=== PATIENT | male | born 1955 | race Hispanic/Latino ===

== ENCOUNTER → 2018-09-03 | Outpatient (CLI) | payer BC ==
[~2018-09-03] MED LIST: ACTOS; AMLODIPINE BESYL5 MG PO; AMLODOPINE; ASPIR 8181 MG PO; ATORVASTATIN CA20 MG PO; AZITHROMYCIN250 MG PO; CHERATUSSIN AC118 ML; GABAPENTIN100 MG PO; GLUCOSAMINE1000 MG PO; IBUPROFEN200 MG PO; LEVEMIR100 UNIT/1 SQ; LISINOPRIL; LISINOPRIL10 MG PO; METFORMIN; METFORMIN HCL500 MG PO; MULTIVITAMINS1 EAC7 PO; NOVOLIN 70100 UNITS/ SQ; OMEGA 3 FISH O1 EACH PO; PANTOPRAZOLE SO40 MG PO; STOOL SOFTENER250 MG PO; ZESTRIL5 MG PO
== END ==
LOC: RAD 14:33
PROVIDERS: ATTEND Podiatrist Foot Surgery
DX: Z01.818 Encounter for other preprocedural examination (principal); M79.672 Pain in left foot; M77.32 Calcaneal spur, left foot; M24.875 Other specific joint derangements left foot, not elsewhere classified

== ENCOUNTER → 2018-09-10 | Day surgery (SDC) | payer BC ==
[2018-08-29 11:55] LABS: BASOPHILS % 0.4 % (0.0-1.0); EOSINOPHILS # (AUTO) 0.3 (0.0-0.4); HEMATOCRIT 41.2 % (38.2-49.6); LYMPHOCYTES # (AUTO) 1.1 (1.0-3.2); LYMPHOCYTES % 21.8 % (18.0-39.1); MEAN CORPUSCULAR HEMOGLOBIN 26.2 pg (28-32); MEAN CORPUSCULAR VOLUME 81.9 fL (81-99); MONOCYTES # (AUTO) 0.5 (0.2-0.8); MONOCYTES % 10.3 % (4.4-11.3); NEUTROPHILS # (AUTO) 3.1 (2.1-6.9); NEUTROPHILS % 62.1 % (38.7-80.0); PLATELET COUNT 237 x10e3/uL (140-360); RED BLOOD COUNT 5.03 x10e6/uL (4.3-5.7); RED CELL DISTRIBUTION WIDTH 13.7 % (11.7-14.4)
[2018-08-29 12:01] LABS: HEMOGLOBIN 13.2 g/dL (14.0-18.0)
[2018-08-29 12:12] LABS: ANION GAP 12.8 mmol/L (8-16); BLOOD UREA NITROGEN 24 mg/dL (7-26); BUN/CREATININE RATIO 21 (6-25); CALCIUM 9.6 mg/dL (8.4-10.2); CARBON DIOXIDE 27 mmol/L (22-29); CHLORIDE 98 mmol/L (98-107); CREATININE, SERUM 1.17 mg/dL (0.72-1.25); EST GLOMERULAR FILTRATION RATE > 60 ML/MIN (60-); GLUCOSE 277 mg/dL (74-118); POTASSIUM 4.8 mmol/L (3.5-5.1); SODIUM 133 mmol/L (136-145)
--- NOTE | 2018-08-29 14:03 | Diagnostic Imaging Report ---
EXAM: CHEST 2 VIEWS DATE: 08/29/2018 11:33 AM INDICATION: Preop, foot surgery COMPARISON: Chest x-ray, 05/04/2014 (images not available, report only) FINDINGS: Lines and tubes: None Heart size normal. There is mild patchy airspace opacity in the lingula associated with linear scarring or atelectasis. There is blunting of left costophrenic angle. The right lung is expanded and clear. Upper abdomen unremarkable with no free air. No acute bony abnormality. IMPRESSION: Patchy opacity in the lingula may be due to atelectasis, with trace pleural effusion or pleural thickening. In the proper clinical setting, early pneumonia is a consideration. Signed by: Dr. Derik Beckham M.D. on 08/29/2018 2:00 PM
--- NOTE | 2018-09-03 15:44 | Diagnostic Imaging Report ---
EXAMINATION: CHEST 2 VIEWS INDICATION: Previous chest congestion. Preop ^PRE OP ^[id number] ^1515 ^DR ORDERS COMPARISON: 08/29/2018 Findings: Lines and tubes: None Heart size normal. There is mild patchy airspace opacity in the lingula associated with linear scarring or atelectasis. There is blunting of left costophrenic angle. The right lung is expanded and clear. Upper abdomen unremarkable with no free air. No acute bony abnormality. IMPRESSION: Patchy opacity in the lingula may be due to atelectasis, with trace pleural effusion or pleural thickening. In the proper clinical setting, early pneumonia is a consideration. The appearance is essentially unchanged. Signed by: Dr. Jey Wheeler M.D. on 09/03/2018 3:40 PM
[~2018-09-10] MED LIST changes: +ACETAMINOPHEN 1000 MG/100 ML IV ONE; +BETAMETHASONE DISODIUM PHOS 6 MG/ML VIAL ONE; +BUPIVACAINE HCL 0.5% INJ 30 ML VIAL INJ ONE; +CEFAZOLIN SOD 1 GM VIAL ONE; +CEFAZOLIN SOD 1 GM/NS 50ML 50 ML IV ONE; +DEXAMETHASONE SOD PHOS INJ 4 MG/ML VIAL ONE; +FENTANYL CITRATE/PF 100MCG/2 ML INJ ONE; +GLYCOPYRROLATE INJ 1MG/ 5 ML SYR ONE; +INSULIN REGULAR, HUMAN 100 UNIT/1 ML 3ML VIAL ONE; +KETOROLAC TROMETHAMINE 30 MG/ML VIAL ONE; +LIDOCAINE HCL 1% LOCAL INJ 20 ML VIAL ONE; +LIDOCAINE HCL 2% JELLY 5 ML TUBE ONE; +LIDOCAINE HCL 2% LOCAL INJ 5 ML SDV VIAL INJ ONE; +MIDAZOLAM HCL 2 MG/2 ML VIAL ONE; +NEOSTIGMINE 5 MG/5ML SYR ONE; +ONDANSETRON HCL INJ 2MG/ML 2ML 2 MG/ML VIAL ONE; +PROPOFOL IV EMULSION 10 MG/ML 20 ML VIAL ONE; +ROCURONIUM BROMIDE 10 MG/ML 5ML VIAL ONE; +SEVOFLURANE INHAL SOLN 250 ML PEN BTL ONE
--- OUTSIDE RECORDS SUMMARY | 2018-09-10 05:23 | XMS REPORT ---
Author Author [facility] Address Unknown Phone Unavailable Care Team Providers Care Poker Machine Attendant Name Role Phone JOAQUÍN REYES Unavailable Unavailable Problems This patient has no known problems. Allergies, Adverse Reactions, Alerts This patient has no known allergies or adverse reactions. Medications This patient has no known medications. Results Test Description Test Time Test Comments Text Results Atomic Results Result Comments CHEST 2 VIEWS 2018-09-03 15:39:00 [place] [address] Patient Name: VENUS COLEMAN MR #: [id number] : 1955 Age/Sex: 63/M Req #: [id number] Adm Physician: Ordered by: JOAQUÍN REYES DPM Report #: [id number] Location: OR Room/Bed: Procedure: [id number] DX/CHEST 2 VIEWS Exam Date: 09/03/18 Exam Time: 1515 REPORT STATUS: Signed EXAMINATION: CHEST 2 VIEWS INDICATION: Previous chest congestion. Preop PRE OP [id number] DR ORDERS COMPARISON: 08/29/2018 Findings: Lines and tubes: None Heart size normal. There is mild patchy airspace opacity in the lingula associated with linear scarring or atelectasis. There is blunting of left costophrenic angle. The right lung is expanded and clear. Upper abdomen unremarkable with no free air. No acute bony abnormality. IMPRESSION: Patchy opacity in the lingula may be due to atelectasis, with trace pleural effusion or pleural thickening. In the proper clinical setting, early pneumonia is a consideration. The appearance is essentially unchanged. Signed by: Dr. Jey Wheeler M.D. on 09/03/2018 3:40 PM Dictated By: JEY WHEELER MD, MD 39 Transcribed By: SATISH on 09/03/181539 COPY TO: JOAQUÍN REYES DPM CHEST 2 VIEWS 2018-08-29 13:54:00 [facility] [address] [place] [address] Patient Name: VENUS COLEMAN MR #: [id number] : 1955 Age/Sex: 63/M Req #: [id number] Adm Physician: Ordered by: JOAQUÍN REYES DPM Report #: [id number] Location: OR Room/Bed: Procedure: [id number] DX/CHEST 2 VIEWS Exam Date: 08/29/18 Exam Time: 1140 REPORT STATUS: Signed EXAM: CHEST 2 VIEWS DATE: 08/29/2018 11:33 AM IND ICATION: Preop, foot surgery COMPARISON: Chest x-ray, 05/04/2014 (images not available, report only) FINDINGS: Lines and tubes: None Heart size normal. There is mild patchy airspace opacity in the lingula associated with linear scarring or atelectasis. There is blunting of left costophrenic angle. The right lung is expanded and clear. Upper abdomen unremarkable with no free air. No acute bony abnormality. IMPRESSION: Patchy opacity in the lingula may be due to atelectasis, with trace pleural effusion or pleural thickening. In the proper clinical setting, early pneumonia is a consideration. Signed by: Dr. Mee Callejas M.D. on 08/29/2018 2:00 PM Dictated By: MEE CALLEJAS MD 99 Transcribed By: SATISH on 08/29/181399 COPY TO: JOAQUÍN REYES DPM
[2018-09-10 10:10] VITALS: BP 124/77
--- NOTE | 2018-09-10 16:01 | Diagnostic Imaging Report ---
EXAM: ANKLE TWO VIEWS LEFT DATE: 09/10/2018 9:13 AM INDICATION:Postop left ankle surgery COMPARISON: None FINDINGS: 2 views of the left ankle shows the area of the mortise partially obscured by overlying tubing on each view. The visualized ankle mortise is symmetrically marginated. No displaced fracture is seen. There is an apparent soft tissue drain inferior to the calcaneus. Small vessel arterial calcifications are seen posterior to the ankle. IMPRESSION: No acute bony abnormality. Soft tissue drain is seen inferior to the calcaneus. Signed by: Dr. Derik Beckham M.D. on 09/10/2018 3:58 PM
--- NOTE | 2018-09-10 16:56 | Operative Report ---
DATE OF PROCEDURE: 09/10/2018 SURGEON: Wan Alfonso DPM SURGEON: Wan Alfonso DPM PREOPERATIVE DIAGNOSES: 1. Instability with a ruptured Achilles tendon, left foot. 2. Heel spur syndrome and plantar fasciitis, left foot. POSTOPERATIVE DIAGNOSIS: Confirmed. OPERATIVE PROCEDURE: 1. Resection of plantar calcaneal heel spur, left foot. 2. Achilles tendon lengthening via longitudinal Z. 3. Repair of Achilles tendon lengthening. 4. Application of allograft. 5. Intraoperative use of fluoroscopy. 6. Trigger point shot of cortisone. 7. Application of posterior splint. ANESTHESIA: General. HEMOSTASIS: Pneumatic thigh tourniquet at 350 mmHg. PROCEDURE IN DETAIL: The patient was taken into the operating room and placed on the operating room table in the prone position. The left lower extremity was then prepped and draped in the usual aseptic manner. Following procedures were then performed. PROCEDURE #1: After inflating the thigh tourniquet at 350 mmHg, attention was then directed to the plantar medial aspect of the left heel where a 3-4 cm linear incision was performed. Incision was deepened down to the plantar fascia level. The medial one half of the plantar fascia was resected from its insertion site. Utilizing a reciprocating bur, the plantar calcaneal spur was excised from the surgical area. All rough and bony edges were rasped smooth. PROCEDURE #2: Achilles tendon lengthening, right foot. Attention was then directed to the posterior aspect of the right heel where 8-10 cm incision was performed. Incision was deepened down to the tendon. Meticulous dissection was then done removing the paratenon from the tendon. At this point, the ruptured tendon was noted to be completely ruptured with minimal attachments so a longitudinal Z-lengthening was performed. The tendon was then incised medially and Z longitudinal lengthening was then performed to allow for proper reapproximation of the tendon. The Z-lengthening part was then reapproximated utilizing 2-0 FiberWire and utilizing Krackow type of suture. PROCEDURE #3: Repair of Achilles tendon was then performed. All necrotic tendon was meticulous dissected until good viable tendon was achieved and utilizing Krackow technique with 2-0 FiberWire, the tendons were then reapproximated. PROCEDURE #4: Application of allograft/EpiFix 2 x 3. EpiFix was then applied overlying the repair of the tendon site and sutured in place utilizing 3-0 Vicryl. All areas were then copiously flushed with sterile antibiotic solution and suctioned. PROCEDURE #5: Intraoperative use of fluoroscopy was then used to make sure proper fixation was achieved and proper resection of spur. Closure was then obtained utilizing 3-0 Vicryl and 3-0 nylon for subcutaneous tissue and skin respectively. A 7 mm TLS drain was inserted into the left heel area to allow for proper drainage and try to prevent a hematoma formation. PROCEDURE #6: A trigger point shot of cortisone was then given to the plantar aspect of the left heel, then approximately 10-15 cc of 0.5% plain Marcaine with 10 cc of xylocaine plain were injected to the above-mentioned surgical areas to allow for local anesthesia. PROCEDURE #7: A properly placed posterior splint was then applied keeping the foot slightly plantar flexed. After the thigh tourniquet was then removed, blood hyperemia was noted immediate to all digits of the patient's left foot. The patient was then transferred from the OR to recovery room with vital signs stable, neurovascular status intact. No intraoperative complications were encountered. Blood loss from surgery was minimal. The patient to remain nonweightbearing with the aid of crutches for at least 6 to 8 weeks. The patient to follow up in the office. MARTHA Coe/GENET /[id number]
== END | disposition home or self-care (01) ==
LOC: OR 05:21
PROVIDERS: ATTEND Podiatrist Foot Surgery
DX: S86.012A Strain of left Achilles tendon, initial encounter (principal); M25.375 Other instability, left foot; M77.32 Calcaneal spur, left foot; M72.2 Plantar fascial fibromatosis; G47.33 Obstructive sleep apnea (adult) (pediatric); K21.9 Gastro-esophageal reflux disease without esophagitis; E78.6 Lipoprotein deficiency; E11.9 Type 2 diabetes mellitus without complications; J98.11 Atelectasis; I10 Essential (primary) hypertension; X58.XXXA Exposure to other specified factors, initial encounter; Z01.812 Encounter for preprocedural laboratory examination; Z01.818 Encounter for other preprocedural examination; Z79.4 Long term (current) use of insulin; Z79.82 Long term (current) use of aspirin; Z87.01 Personal history of pneumonia (recurrent)
CPT/HCPCS: 27650; 28119; 36415 ×2; 71046 ×2; 73600; 80048; 82948; 85025; J0131; J0690 ×2; J0720; J1100; J1885; J2001 ×3; J2250; J2405; J2704; J3490; Q4186

== ENCOUNTER → 2021-09-02 | Outpatient (CLI) | payer MEDICARE ==
[~2021-09-02] MED LIST changes: -ACETAMINOPHEN 1000 MG/100 ML IV ONE; +ALBUTEROL SULF 0.083% NEB SOLN 3 ML NEB ONE; -BETAMETHASONE DISODIUM PHOS 6 MG/ML VIAL ONE; -BUPIVACAINE HCL 0.5% INJ 30 ML VIAL INJ ONE; -CEFAZOLIN SOD 1 GM VIAL ONE; -CEFAZOLIN SOD 1 GM/NS 50ML 50 ML IV ONE; -DEXAMETHASONE SOD PHOS INJ 4 MG/ML VIAL ONE; -FENTANYL CITRATE/PF 100MCG/2 ML INJ ONE; -GLYCOPYRROLATE INJ 1MG/ 5 ML SYR ONE; -INSULIN REGULAR, HUMAN 100 UNIT/1 ML 3ML VIAL ONE; -KETOROLAC TROMETHAMINE 30 MG/ML VIAL ONE; -LIDOCAINE HCL 1% LOCAL INJ 20 ML VIAL ONE; -LIDOCAINE HCL 2% JELLY 5 ML TUBE ONE; -LIDOCAINE HCL 2% LOCAL INJ 5 ML SDV VIAL INJ ONE; -MIDAZOLAM HCL 2 MG/2 ML VIAL ONE; -NEOSTIGMINE 5 MG/5ML SYR ONE; -ONDANSETRON HCL INJ 2MG/ML 2ML 2 MG/ML VIAL ONE; -PROPOFOL IV EMULSION 10 MG/ML 20 ML VIAL ONE; -ROCURONIUM BROMIDE 10 MG/ML 5ML VIAL ONE; -SEVOFLURANE INHAL SOLN 250 ML PEN BTL ONE
== END ==
LOC: RESP 10:11
PROVIDERS: ATTEND Family Medicine
DX: R04.2 Hemoptysis (principal); J44.9 Chronic obstructive pulmonary disease, unspecified
CPT/HCPCS: 94060; 94640; 94729